=== PATIENT | male | born 1940 | race Caucasian/White ===

== ENCOUNTER 2016-12-07 05:15 | Day surgery (SDC) | payer MEDICARE, BC ==
[2016-12-07] MEDS ORDERED: Dextrose 5%-Lactated Ringers 1,000 ML IV SCH (06:15)
[2016-12-07] MEDS ORDERED: Midazolam 1 MG/ML 2 ML SDV ONE (07:13)
[2016-12-07] MEDS ORDERED: fentaNYL 100 MCG/2 ML SDV ONE (07:13)
[2016-12-07] MEDS ORDERED: Propofol 200 MG/20 ML SDV ONE ×2 (07:13→07:40)
[2016-12-07] MEDS ORDERED: Glycopyrrolate 0.2 MG/ML 2 ML SYRINGE IVPUSH ONE (07:15)
[2016-12-07] MEDS ORDERED: Pantoprazole 40 MG Vial IVPUSH ONE (08:15)
[2016-12-07 10:15] VITALS: BP 124/72
--- NOTE | 2016-12-14 07:41 | OR ---
DATE OF PROCEDURE: 12/07/2016 PREOPERATIVE DIAGNOSIS: Anemia. POSTOPERATIVE DIAGNOSES: Anemia associated with: 1. Erosive antral gastritis and duodenitis (likely bleeding source). 2. 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 3. Uncomplicated left colonic diverticulosis. OPERATIVE PROCEDURE: 1. Esophagogastroduodenoscopy with:. a. Biopsies of the esophagogastric junction for histologic evaluation. b. Biopsies of antrum for CLOtest. 2. Flexible colonoscopy. ANESTHESIA: IV sedation. INDICATION FOR PROCEDURE: A 76-year-old male presenting with some anemia. Plan is to proceed with upper GI endoscopy with biopsies as indicated along with colonoscopy with biopsies and/or polypectomy as indicated. Potential risks including bleeding and perforation were discussed, and the patient wishes to proceed. DETAILS OF PROCEDURE: Esophagogastroduodenoscopy: The patient was taken to the operating room and placed in a left lateral decubitus position. IV sedation was administered, after which the upper GI endoscope was passed orally through the length of the esophagus, into the stomach with retroflexion view of the fundus, and thereafter through the pyloric channel and into the proximal duodenum. Findings included normal hypopharynx, larynx, upper esophageal sphincter, and esophageal body. At the EG junction there was 1 to 2 cm hiatal hernia. 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 No erosions or ulcers were seen and at this point would not appear to be likely a bleeding source. Within the stomach, the proximal stomach, apart from the hiatal hernia, was unremarkable. There was, however, fairly aggressive erosive antral gastritis and duodenitis. Duodenitis ended beyond the duodenal bulb. There was no blood or bleeding seen on today's exam, but the findings certainly could be consistent with some intermittent bleeding from those areas as the erosion would over time tend to wax and wane. At this point, biopsies were obtained from the antrum and sent for CLOtest for H. pylori. Multiple biopsies were then obtained from esophagogastric junction and sent for histologic evaluation. Minimal bleeding from the biopsy sites was seen and the procedure was then concluded. Colonoscopy: Attention was then taken to the colonoscopy. Initial digital rectal exam was performed, and it was unremarkable. Colonoscope was then inserted into the rectum with retroflexion revealing uncomplicated hemorrhoidal columns. The scope was then passed to the level of the cecum. The prep was fairly good with there only being a small amount of liquid and some scattered solid stool present. The patient had some scattered uncomplicated left- sided colonic diverticula, otherwise there were no areas of colitis and no polyps or other signs of neoplasia. The scope was then withdrawn. The above findings were reconfirmed, and the procedure was then concluded. PLAN: Plan will be to start the patient on Protonix 40 mg a day. The patient has been on ibuprofen, and this may be contributing to the patient's gastritis. In the past, Tylenol has not been efficacious. I think, after starting the Protonix, he probably can go back on the ibuprofen. Other option would be to switch to something such as a JACKSON-2 inhibitor, i.e., Celebrex for the arthritis, and we will leave that decision making up to Dr. Peter and the patient over time. Otherwise, we will start Protonix 40 mg a day, and he will be instructed that he could restart the ibuprofen in around 5 days or so, and follow up will be with Dr. Peter in roughly [address] [facility]. Tai Sarah MD /[id number]
== END 2016-12-07 10:35 | disposition home or self-care (01) ==
LOC: JP.SDS 05:15
PROVIDERS: ATTEND Surgery
DX: K21.0 Gastro-esophageal reflux disease with esophagitis (principal); K57.30 Diverticulosis of large intestine without perforation or abscess without bleeding; K44.9 Diaphragmatic hernia without obstruction or gangrene; Z88.1 Allergy status to other antibiotic agents; Z88.8 Allergy status to other drugs, medicaments and biological substances; E78.00 Pure hypercholesterolemia, unspecified; E03.9 Hypothyroidism, unspecified; G62.9 Polyneuropathy, unspecified
CPT/HCPCS: 43239; 45378; 87081; C9113; J2250; J2704; J3010; J7042; 88305

== ENCOUNTER 2017-08-03 09:50 | Emergency (ER) | payer MEDICARE, BC ==
[2017-08-03 10:09] VITALS: BP 142/83
[2017-08-03] MEDS ORDERED: Diltiazem IR 30 MG Tab PO ONE (10:32)
--- NOTE | 2017-08-03 10:43 | EDM.PDOC ---
ED HPI GENERAL MEDICAL PROBLEM - General Chief Complaint: Cardiovascular Problem Stated Complaint: [facility] Time Seen by Provider: 08/03/17 10:00 Source of Information: Reports: Patient, Family History Limitations: Reports: No Limitations - History of Present Illness INITIAL COMMENTS - FREE TEXT/NARRATIVE: 76-year-old male with chronic paroxysmal atrial fibrillation tends to get an episode of atrial fibrillation "every spring and every fall". This morning after he was up for the day he developed palpitations and he knew he was in atrial fibrillation. He has no shortness of breath, chest pain, nausea or vomiting or other symptoms. He called the clinic and he was sent to the emergency room. Onset: Sudden (Within the last 3 hours) Severity: Mild Associated Symptoms: Reports: No Other Symptoms - Related Data Allergies Allergy/AdvReac Type Severity Reaction Status Date / Time triamcinolone acetonide Allergy Rash Verified 12/07/16 06:03 [From Kenalog] amoxicillin trihydrate AdvReac Diarrhea Verified 12/07/16 06:03 [From Augmentin] azithromycin [From Zithromax] AdvReac Stomach Verified 12/07/16 06:03 Ache potassium clavulanate AdvReac Diarrhea Verified 12/07/16 06:03 [From Augmentin] Home Meds: Home Meds Docusate Sodium [Colace] 2 tab PO BEDTIME 11/05/13 [History] Fluticasone Propionate [Flonase] 1 spray NASBOTH DAILY 11/05/13 [History] Furosemide [Lasix] 20 mg PO ASDIRECTED PRN 11/05/13 [History] Levothyroxine 200 mcg PO DAILY 11/05/13 [History] Multivitamin with Minerals [Multiple Vitamin] 1 tab PO DAILY 11/05/13 [History] Propafenone HCl [Rythmol] 150 mg PO BID 11/05/13 [History] atorvaSTATin Calcium [Atorvastatin Calcium] 20 mg PO BEDTIME 11/05/13 [History] Aspirin [Ecotrin] 81 mg PO DAILY 12/06/16 [History] Past Medical History HEENT History: Reports: Allergic Rhinitis, Cataract Cardiovascular History: Reports: Afib, Arrhythmia, High Cholesterol Respiratory History: Reports: Pneumothorax Other Respiratory History: 1999 Gastrointestinal History: Reports: Chronic Constipation, GERD, Hemorrhoids Musculoskeletal History: Reports: Fracture, Osteoarthritis Neurological History: Reports: Other (See Below) Other Neuro History: Lesion cervical canal (stroke) Endocrine/Metabolic History: Reports: Hypothyroidism Hematologic History: Reports: Anemia, Iron Deficiency Oncologic (Cancer) History: Reports: Basal Cell Carcinoma Dermatologic History: Reports: Other (See Below) Other Dermatologic History: basal cell - Infectious Disease History Infectious Disease History: Reports: Chicken Pox, Measles, Mumps - Past Surgical History HEENT Surgical History: Reports: Adenoidectomy, Tonsillectomy GI Surgical History: Reports: Appendectomy, Colonoscopy, EGD, Hernia Repair/ Other Endocrine Surgical History: Reports: None Musculoskeletal Surgical History: Reports: Arthroscopic Knee, Hip Replacement, Shoulder Surgery Dermatological Surgical History: Reports: Skin Biopsy Social & Family History - Tobacco Use Smoking Status *Q: Former Smoker Years of Tobacco use: 30 Used Tobacco, but Quit: No Month Tobacco Last Used: Oct Tobacco Use Comment: quit in March 2017 Second Hand Smoke Exposure: No - Caffeine Use Caffeine Use: Reports: None - Alcohol Use Days Per Week of Alcohol Use: 0 - Recreational Drug Use Recreational Drug Use: No ED ROS GENERAL - Review of Systems Review Of Systems: See Below Constitutional: Denies: Fever, Chills Respiratory: Denies: Shortness of Breath Cardiovascular: Reports: Palpitations. Denies: Chest Pain GI/Abdominal: Denies: Abdominal Pain, Nausea, Vomiting ED EXAM, GENERAL - Physical Exam Exam: See Below Exam Limited By: No Limitations General Appearance: Alert, No Apparent Distress Respiratory/Chest: No Respiratory Distress, Lungs Clear Cardiovascular: Irregularly Irregular Extremities: No: Pedal Edema Neurological: Alert, Oriented EKG INTERPRETATION Rhythm: A-Fib Rate (Beats/Min): 120 Course - Vital Signs Last Recorded V/S: Last Vital Signs Temp 97.0 F 08/03/17 09:53 Pulse 138 H 08/03/17 09:53 Resp 20 08/03/17 09:53 BP 142/83 H 08/03/17 09:53 Pulse Ox 96 08/03/17 09:53 - Orders/Labs/Meds Orders: Active Orders 24 hr Category Date Time Status EKG Documentation Completion [RC] ASDIRECTED Care 08/03/17 10:39 Active EKG 12 Lead [EK] Routine Ther 08/03/17 10:39 Ordered Meds: Medications Discontinued Medications Generic Name Dose Route Start Last Admin Trade Name Freq PRN Reason Stop Dose Admin Diltiazem HCl 30 mg 08/03/17 10:32 Cardizem PO 08/03/17 10:33 ONETIME ONE - Re-Assessments/Exams Free Text/Narrative Re-Assessment/Exam: 08/03/17 10:41 Patient was kept on cardiac monitoring and remained in atrial fibrillation for the next 20 minutes. He had eaten on his way to the hospital, so we were preparing to give him a dose of oral Cardizem and have him come back in 4 hours but he converted spontaneously. He remained asymptomatic. He was discharged with instructions to return if symptoms recur. They are calling the collet driller to inform him of what happened. Departure - Departure Time of Disposition: 11:00 Disposition: Home, Self-Care 01 Condition: Good Clinical Impression: Atrial fibrillation with rapid ventricular response Referrals: Fernando Peter MD [Primary Care Provider] - Forms: ED Department Discharge Care Plan Goals: Continue your current medications unless instructed to change doses by your collet driller. Return any time if symptoms recur or you develop other concerns. - My Orders Last 24 Hours: My Active Orders 08/03/17 10:39 EKG Documentation Completion [RC] ASDIRECTED EKG 12 Lead [EK] Routine - Assessment/Plan Last 24 Hours: My Active Orders 08/03/17 10:39 EKG Documentation Completion [RC] ASDIRECTED EKG 12 Lead [EK] Routine
== END 2017-08-03 11:00 | disposition home or self-care (01) ==
LOC: JP.ED 09:50
DX: I48.91 Unspecified atrial fibrillation (principal); Z88.8 Allergy status to other drugs, medicaments and biological substances; Z88.1 Allergy status to other antibiotic agents; Z79.82 Long term (current) use of aspirin; E03.9 Hypothyroidism, unspecified; Z87.891 Personal history of nicotine dependence
CPT/HCPCS: 93005; 93010; 99284; 99285-25

== ENCOUNTER 2018-12-11 07:58 | Day surgery (SDC) | payer MEDICARE, BC ==
[~2018-12-11 07:58] MED LIST: Midazolam 1 MG/ML 2 ML SDV ONE; Propofol 200 MG/20 ML SDV ONE; fentaNYL 100 MCG/2 ML SDV ONE
[2018-12-11] MEDS ORDERED: Dextrose 5%-Lactated Ringers 1,000 ML IV SCH (08:45)
[2018-12-11] MEDS ORDERED: Ampicillin/Sulbactam Na 3 GM in Sodium Chloride 0.9% 100 ML IV ONE (08:45)
[2018-12-11] MEDS ORDERED: fentaNYL 100 MCG/2 ML SDV ONE (09:07)
[2018-12-11] MEDS ORDERED: Propofol 200 MG/20 ML SDV ONE (09:07)
[2018-12-11 12:32] VITALS: BP 140/83
--- NOTE | 2018-12-12 10:40 | OR ---
DATE OF PROCEDURE: 12/11/2018 PREOPERATIVE DIAGNOSIS: History of Quintanilla esophagus. POSTOPERATIVE DIAGNOSES: 1. History of Quintanilla esophagus. 2. Mild antral gastritis and duodenitis. OPERATIVE PROCEDURES: Esophagogastroduodenoscopy with, 1. Biopsies of esophagogastric junction for histologic evaluation. 2. Biopsies of antrum for CLOtest. ANESTHESIA: IV sedation. INDICATION FOR PROCEDURE: This is a 78-year-old presenting with history of Quintanilla esophagus, for followup endoscopy. Potential risks including bleeding and perforation were discussed, and the patient wishes to proceed. DETAILS OF PROCEDURE: The patient was taken to the operating room and placed in a left lateral decubitus position. IV sedation was administered, after which the upper GI endoscope was passed orally through the length of the esophagus and into the stomach with retroflexion view of the fundus, thereafter through the pyloric channel and into the proximal duodenum. Findings included a moderate-sized hiatal hernia measuring around 2 to 3 cm. He did have some Quintanilla esophagus present in terms of upper extension of gastroesophageal junction mucosal line above the upper gastric folds. This was associated with minimal if any gross inflammation. There was no area of stricturing or plaquing suggestive of neoplastic change. Within the stomach, there was some mild redness in the antrum and some patchy redness in the duodenal bulb, but without erosions or ulcers. At this point, biopsies were obtained from the antrum and sent for CLOtest for H. pylori. Multiple biopsies were then sent for the esophagogastric junction. Minimal bleeding from the biopsy site was seen and procedure was then concluded. The patient presently is not any stomach medication. Moderate inflammation at the antrum and duodenum are such that I do not think we can start any at this time. We will contact the patient regarding the biopsies. Assuming that there is not any trend toward dysplasia within the Quintanilla esophagus, would repeat the endoscopy in 2 years. Tai Sarah MD /[id number]
== END 2018-12-11 13:02 | disposition home or self-care (01) ==
LOC: JP.SDS 07:58
PROVIDERS: ATTEND Surgery
DX: K22.70 Barrett's esophagus without dysplasia (principal); K29.80 Duodenitis without bleeding; K29.70 Gastritis, unspecified, without bleeding; E03.9 Hypothyroidism, unspecified; I48.91 Unspecified atrial fibrillation; Z86.73 Personal history of transient ischemic attack (TIA), and cerebral infarction without residual deficits
CPT/HCPCS: 43239; 87081; J0295; J2704; J3010; J7030; J7042; J2250

== ENCOUNTER 2020-06-12 09:06 | Inpatient (IN) | payer MEDICARE, BC, OTHER ==
[2020-06-12] MEDS ORDERED: Sodium Chloride 0.9% 10 ML Syringe FLUSH PRN (09:28)
--- NOTE | 2020-06-12 09:28 | EDM.PDOC ---
ED HPI GENERAL MEDICAL PROBLEM - General Chief Complaint: Gastrointestinal Problem Stated Complaint: POSSIBLE GI BLEED Time Seen by Provider: 06/12/20 09:28 Source of Information: Reports: Patient History Limitations: Reports: No Limitations - History of Present Illness INITIAL COMMENTS - FREE TEXT/NARRATIVE: 79 years old male patient presented to the ER with a chief complaint of abdominal pain started a couple days ago. Cramping. No radiation. Denies any nausea or vomiting. Nothing makes it better or worse. Has been having black stool for the last couple days. No bright red blood. Denies any diarrhea or constipation. Denies any urinary symptom. Denies any cough or fever. Has been feeling short of breath for the last few days. Exertional. Denies any chest pain. He had a low blood pressure, 80 systolic in the last few days. 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 He went to the clinic this morning and was sent to the ER for concern about GI bleed. Abdomen Pain Score (Numeric/FACES): 4 - Related Data Allergies Allergy/AdvReac Type Severity Reaction Status Date / Time ibuprofen Allergy Other Verified 06/12/20 09:21 triamcinolone acetonide Allergy Rash Verified 06/12/20 09:21 [From Kenalog] amoxicillin trihydrate AdvReac Diarrhea Verified 06/12/20 09:21 [From Augmentin] azithromycin [From Zithromax] AdvReac Stomach Verified 06/12/20 09:21 Ache potassium clavulanate AdvReac Diarrhea Verified 06/12/20 09:21 [From Augmentin] Home Meds: Home Meds Docusate Sodium [Colace] 2 tab PO BEDTIME 11/05/13 [History] Fluticasone Propionate [Flonase] 1 spray NASBOTH DAILY 11/05/13 [History] Furosemide [Lasix] 40 mg PO DAILY 11/05/13 [History] Levothyroxine 150 mcg PO DAILY 11/05/13 [History] Multivitamin with Minerals [Multiple Vitamin] 1 tab PO DAILY 11/05/13 [History] Apixaban [Eliquis] 5 mg PO BID 12/08/18 [History] [place]-3/DHA/Epa/Fish Oil [[place]-3 Fish Oil 1,000 MG Sfgl] 2,000 mg PO DAILY 12/08/18 [History] Metoprolol Succinate 25 mg PO DAILY 06/12/20 [History] Ubidecarenone [Coq-10] 100 mg PO DAILY 06/12/20 [History] Past Medical History HEENT History: Reports: Allergic Rhinitis, Cataract Cardiovascular History: Reports: Afib, Arrhythmia, High Cholesterol Respiratory History: Reports: Pneumothorax Other Respiratory History: 1999 Gastrointestinal History: Reports: Chronic Constipation, GERD, Hemorrhoids Musculoskeletal History: Reports: Fracture, Osteoarthritis Neurological History: Reports: Other (See Below) Other Neuro History: Lesion cervical canal (stroke) Endocrine/Metabolic History: Reports: Hypothyroidism Hematologic History: Reports: Anemia, Iron Deficiency Oncologic (Cancer) History: Reports: Basal Cell Carcinoma Dermatologic History: Reports: Other (See Below) Other Dermatologic History: basal cell - Infectious Disease History Infectious Disease History: Reports: Chicken Pox, Measles, Mumps - Past Surgical History HEENT Surgical History: Reports: Adenoidectomy, Tonsillectomy GI Surgical History: Reports: Appendectomy, Colonoscopy, EGD, Hernia Repair/Other Endocrine Surgical History: Reports: None Musculoskeletal Surgical History: Reports: Arthroscopic Knee, Hip Replacement, Shoulder Surgery Dermatological Surgical History: Reports: Skin Biopsy Social & Family History - Family History Family Medical History: Noncontributory - Caffeine Use Caffeine Use: Reports: None ED ROS GENERAL - Review of Systems Review Of Systems: Comprehensive ROS is negative, except as noted in HPI. ED EXAM, GI/ABD - Physical Exam Exam: See Below General Appearance: Alert, WD/WN, No Apparent Distress Nose: Normal Inspection, Normal Mucosa, No Blood Head: Atraumatic, Normocephalic Neck: Normal Inspection, Supple, Non-Tender, Full Range of Motion Respiratory/Chest: No Respiratory Distress, Lungs Clear, Normal Breath Sounds, No Accessory Muscle Use, Chest Non-Tender Cardiovascular: Normal Peripheral Pulses, No Edema, No Gallop, No JVD, No Murmur, No Rub, Irregularly Irregular GI/Abdominal Exam: Normal Bowel Sounds, Soft, Non-Tender, No Organomegaly, No Distention, No Mass Extremities: Normal Inspection, Normal Range of Motion, Non-Tender, Normal Capillary Refill, No Pedal Edema Neurological: Alert, Oriented, CN II-XII Intact, Normal Cognition, Normal Gait, Normal Reflexes, No Motor/Sensory Deficits Skin Exam: Warm, Dry, Intact, Normal Color, No Rash Course - Vital Signs Last Recorded V/S: Last Vital Signs Temp 36.2 C 06/12/20 09:15 Pulse 40 L 06/12/20 10:41 Resp 16 06/12/20 09:15 BP 115/52 L 06/12/20 10:41 Pulse Ox 99 06/12/20 10:41 - Orders/Labs/Meds Orders: Active Orders 24 hr Category Date Time Status Peripheral IV Care [RC] . DIRECTED Care 06/12/20 09:29 Active PATIENT RETYPE [BBK] Urgent Lab 06/12/20 09:46 Results TYPE AND SCREEN [BBK] Urgent Lab 06/12/20 09:46 Results Pantoprazole [ProTONIX IV] Med 06/12/20 11:58 Once 40 mg IVPUSH ONETIME ONE Sodium Chloride 0.9% [Normal Saline] 1,000 ml Med 06/12/20 09:30 Active IV ASDIRECTED Sodium Chloride 0.9% [Normal Saline] 100 ml Med 06/12/20 10:30 Active IV ASDIRECTED Sodium Chloride 0.9% [Saline Flush] Med 06/12/20 09:28 Active 10 ml FLUSH ASDIRECTED PRN Peripheral IV Insertion Adult [OM.PC] Urgent Oth 06/12/20 09:28 Ordered Medication Orders Sodium Chloride (Normal Saline) 1,000 mls @ 125 mls/hr IV ASDIRECTED [facility] Last Admin: 06/12/20 10:00 Dose: 125 mls/hr Documented by: PREILOR Sodium Chloride (Normal Saline) 100 mls @ 3 mls/sec IV ASDIRECTED [facility] Last Admin: 06/12/20 11:35 Dose: 3 mls/sec Documented by: MELIA Pantoprazole Sodium (Protonix Iv) 40 mg IVPUSH ONETIME ONE Stop: 06/12/20 11:59 Sodium Chloride (Saline Flush) 10 ml FLUSH ASDIRECTED PRN PRN Reason: Keep Vein Open Last Admin: 06/12/20 09:59 Dose: 10 ml Documented by: PREILOR Labs: Laboratory Tests 06/12/20 06/12/20 06/12/20 Range/Units 09:46 09:46 09:46 WBC 8.7 (4.5-11.0) K/uL RBC 3.61 L (4.30-5.90) M/uL Hgb 11.4 L (12.0-15.0) g/dL Hct 36.7 L (40.0-54.0) % MCV 102 H (80-98) fL MCH 32 H (27-31) pg MCHC 31 L (32-36) % Plt Count 247 (150-400) K/uL Neut % (Auto) 80 H (36-66) % Lymph % (Auto) 10 L (24-44) % Stark % (Auto) 9 H (2-6) % Eos % (Auto) 0 L (2-4) % Baso % (Auto) 1 (0-1) % PT 11.8 (9.5-12.0) sec INR 1.08 (0.80-1.20) APTT 24.1 L (27.0-36.0) sec Sodium 140 (140-148) mmol/L Potassium 3.8 (3.6-5.2) mmol/L Chloride 104 (100-108) mmol/L Carbon Dioxide 28 (21-32) mmol/L Anion Gap 7.8 (5.0-14.0) mmol/L BUN 65 H (7-18) mg/dL Creatinine 0.7 L (0.8-1.3) mg/dL Est Cr Clr Drug Dosing 94.13 mL/min Estimated GFR (MDRD) > 60 (>60) Glucose 133 H (74-106) mg/dL Calcium 8.3 L (8.5-10.1) mg/dL Total Bilirubin 0.2 (0.2-1.0) mg/dL AST 30 (15-37) U/L ALT 20 (12-78) U/L Alkaline Phosphatase 80 (46-116) U/L Total Protein 5.7 L (6.4-8.2) g/dL Albumin 3.0 L (3.4-5.0) g/dL Globulin 2.7 (2.3-3.5) g/dL Albumin/Globulin Ratio 1.1 L (1.2-2.2) Blood Type Gel Antibody Screen 06/12/20 Range/Units 09:46 WBC (4.5-11.0) K/uL RBC (4.30-5.90) M/uL Hgb (12.0-15.0) g/dL Hct (40.0-54.0) % MCV (80-98) fL MCH (27-31) pg MCHC (32-36) % Plt Count (150-400) K/uL Neut % (Auto) (36-66) % Lymph % (Auto) (24-44) % Stark % (Auto) (2-6) % Eos % (Auto) (2-4) % Baso % (Auto) (0-1) % PT (9.5-12.0) sec INR (0.80-1.20) APTT (27.0-36.0) sec Sodium (140-148) mmol/L Potassium (3.6-5.2) mmol/L Chloride (100-108) mmol/L Carbon Dioxide (21-32) mmol/L Anion Gap (5.0-14.0) mmol/L BUN (7-18) mg/dL Creatinine (0.8-1.3) mg/dL Est Cr Clr Drug Dosing mL/min Estimated GFR (MDRD) (>60) Glucose (74-106) mg/dL Calcium (8.5-10.1) mg/dL Total Bilirubin (0.2-1.0) mg/dL AST (15-37) U/L ALT (12-78) U/L Alkaline Phosphatase (46-116) U/L Total Protein (6.4-8.2) g/dL Albumin (3.4-5.0) g/dL Globulin (2.3-3.5) g/dL Albumin/Globulin Ratio (1.2-2.2) Blood Type A POSITIVE Gel Antibody Screen Negative Meds: Medications Generic Name Dose Route Start Last Admin Trade Name Christopher PRN Reason Stop Dose Admin Sodium Chloride 1,000 mls @ 125 mls/hr 06/12/20 09:30 06/12/20 10:00 Normal Saline IV 125 mls/hr ASDIRECTED DOLORES Administration Sodium Chloride 100 mls @ 3 mls/sec 06/12/20 10:30 06/12/20 11:35 Normal Saline IV 3 mls/sec ASDIRECTED DOLORES Administration Pantoprazole Sodium 40 mg 06/12/20 11:58 Protonix Iv IVPUSH 06/12/20 11:59 ONETIME ONE Sodium Chloride 10 ml 06/12/20 09:28 06/12/20 09:59 Saline Flush FLUSH 10 ml ASDIRECTED PRN Administration Keep Vein Open Discontinued Medications Generic Name Dose Route Start Last Admin Trade Name Freq PRN Reason Stop Dose Admin Metronidazole 500 mg/ Premix 100 mls @ 100 mls/hr 06/12/20 11:46 06/12/20 11:51 IV 06/12/20 12:45 Not Given ONETIME ONE Iopamidol 124 ml 06/12/20 10:19 06/12/20 11:35 Isovue-300 (61%) IV 06/12/20 10:20 124 ml ONETIME ONE Administration Sodium Chloride 10 ml 06/12/20 10:19 06/12/20 11:35 Saline Flush FLUSH 06/12/20 10:20 10 ml ONETIME ONE Administration - Radiology Interpretation Free Text/Narrative:: Patient was seen and examined shortly after arrival. Stable. Lab and imaging reviewed with the patient. Given 40 mg IV Protonix. Concern about upper GI bleed. Case was discussed with Dr. Garcia hospitalist stone rougher and he accepted admission for further management. Patient agrees with the plan. Stable for admission. Departure - Departure Time of Disposition: 11:57 Disposition: Admitted As Inpatient 66 Condition: Fair Clinical Impression: GI bleed - Discharge Information Referrals: Loi Devi MD [Primary Care Provider] - Forms: ED Department Discharge Sepsis Event Note (ED) - Evaluation Sepsis Screening Result: No Definite Risk - Focused Exam Vital Signs: Vital Signs Temp Pulse Resp BP Pulse Ox 06/12/20 10:41 40 L 115/52 L 99 06/12/20 09:15 36.2 C 44 L 16 129/60 98 06/12/20 09:13 46 L 129/60 97 - My Orders Last 24 Hours: My Active Orders 06/12/20 09:28 Sodium Chloride 0.9% [Saline Flush] 10 ml FLUSH ASDIRECTED PRN Peripheral IV Insertion Adult [OM.PC] Urgent 06/12/20 09:29 Peripheral IV Care [RC] . DIRECTED 06/12/20 09:30 Sodium Chloride 0.9% [Normal Saline] 1,000 ml IV ASDIRECTED 06/12/20 09:46 PATIENT RETYPE [BBK] Urgent TYPE AND SCREEN [BBK] Urgent 06/12/20 10:30 Sodium Chloride 0.9% [Normal Saline] 100 ml IV ASDIRECTED 06/12/20 11:58 Pantoprazole [ProTONIX IV] 40 mg IVPUSH ONETIME ONE - Assessment/Plan Last 24 Hours: My Active Orders 06/12/20 09:28 Sodium Chloride 0.9% [Saline Flush] 10 ml FLUSH ASDIRECTED PRN Peripheral IV Insertion Adult [OM.PC] Urgent 06/12/20 09:29 Peripheral IV Care [RC] . DIRECTED 06/12/20 09:30 Sodium Chloride 0.9% [Normal Saline] 1,000 ml IV ASDIRECTED 06/12/20 09:46 PATIENT RETYPE [BBK] Urgent TYPE AND SCREEN [BBK] Urgent 06/12/20 10:30 Sodium Chloride 0.9% [Normal Saline] 100 ml IV ASDIRECTED 06/12/20 11:58 Pantoprazole [ProTONIX IV] 40 mg IVPUSH ONETIME ONE
[2020-06-12] MEDS ORDERED: Sodium Chloride 0.9% 1,000 ML IV SCH (09:30)
[2020-06-12] MEDS ORDERED: Sodium Chloride 0.9% 10 ML Syringe FLUSH ONE (10:19)
[2020-06-12] MEDS ORDERED: Iopamidol 612 MG/ML 500 ML Multipack Bottle IV ONE (10:19)
[2020-06-12] MEDS ORDERED: Sodium Chloride 0.9% 100 ML IV SCH (10:30)
--- NOTE | 2020-06-12 11:06 | CR ---
CHEST: 2 view CLINICAL HISTORY:SOB COMPARISON:2009 FINDINGS: The heart size, pulmonary vascularity and hilar structures are normal. No infiltrate effusion or pneumothorax is seen. There are atherosclerotic changes in the aorta. Lungs are mildly hyperaerated IMPRESSION: No acute cardiopulmonary process. Mild hyperaeration
--- NOTE | 2020-06-12 11:17 | CT ---
Abdomen Pelvis w Cont CLINICAL HISTORY: Black stool COMPARISON: None. TECHNIQUE: Transverse scans were obtained from the base of the lungs to the pubic symphysis following oral contrast and IV infusion of contrast.Auto dosage reduction and iterative reconstructiontechniques employed. FINDINGS: The lung bases are clear. There is a small hiatal hernia. The liver shows some diffuse fatty infiltration. There is no mass or biliary dilatation. It is borderline enlarged The gallbladder contains a 4 mm nodular focus in the mid gallbladder in the dependent portion. This may represent a small stone or possibly a polyp.. The spleen has a normal size and shape. The pancreas shows no mass or inflammatory change. The adrenal glands are enlarged bilaterally. Density measurements are nonspecific and postcontrast study. . The left kidney contains a 1.3 cm cyst off the upper pole. There is no stones or hydronephrosis. Ureters have normal course and caliber. Cyst.. The bladder is obscured by streak artifact from hip prostheses.. The aorta shows atheromatous plaque without aneurysm. There is no suspicious retroperitoneal adenopathy. Small intestinal configuration is nonacute. There is some sigmoid diverticulosis without evidence diverticulitis. Appendix is not visualized. Low pelvic fascial planes are partially obscured by motion artifact and streak artifact from hip prostheses IMPRESSION: 4 mm nodular filling defect in the dependent portion of gallbladder is likely a small stone. Polyp cannot be excluded. This should be correlated with ultrasound Fatty infiltration of the liver Small left renal cyst Bilateral adrenal enlargement versus bilateral adrenal nodules. Density measurements are nonspecific
[2020-06-12] MEDS ORDERED: Ciprofloxacin in D5W 400 MG in Premix Bag 1 BAG IV ONE ×2 (11:46)
[2020-06-12] MEDS ORDERED: metroNIDAZOLE/Normal Saline 500 MG in Premix Bag 1 BAG IV ONE (11:46)
[2020-06-12] MEDS ORDERED: Pantoprazole 40 MG Vial IVPUSH ONE (11:58)
--- NOTE | 2020-06-12 12:59 | PCM.HP.2 ---
H&P History of Present Illness - General Date of Service: 06/12/20 Admit Problem/Dx: Admission Diagnosis/Problem Admission Diagnosis/Problem Gastrointestinal hemorrhage with melena Source of Information: Patient, Family, Provider History Limitations: Reports: No Limitations - History of Present Illness Initial Comments - Free Text/Narative: CC: My stool was black HPI: Al presents to the emergency room today with melena and episodes of presyncope. Symptoms started several days ago and initially it was mostly fatigue. He had some weakness. His blood pressure and heart rate were noted to be low at home. His metoprolol was stopped but symptoms continued. Last night he developed melena and felt like he was going to pass out when getting back to the bathroom. This happened 2 more times last night. He went to the clinic this morning for evaluation and they sent him right to the emergency room. He has had fairly large volume black and tarry stools on several occasions. No natasha blood and no hematemesis. He has had an increase in acid reflux but no reported abdominal pain. He is not aware of any fevers. He has not had recent difficulties with diarrhea or constipation. He does feel a little bit more short of breath than usual but has not had any orthopnea or lower extremity swelling. Appetite has been off the last few days but had been good prior to that. No travel or sick contacts. No new home medications. No change in his diet. Work-up in the emergency room revealed a hemoglobin of 11 with a baseline of about 15. He was borderline hypotensive but has been improving with IV fluids. Remainder of his laboratory studies are fairly unremarkable. He has received a dose of IV pantoprazole and will be admitted for further management of a pr esumed upper gastrointestinal hemorrhage. Abdomen Pain Score (Numeric/FACES): 4 - Related Data Allergies/Adverse Reactions: Allergies Allergy/AdvReac Type Severity Reaction Status Date / Time ibuprofen Allergy Other Verified 06/12/20 09:21 triamcinolone acetonide Allergy Rash Verified 06/12/20 09:21 [From Kenalog] amoxicillin trihydrate AdvReac Diarrhea Verified 06/12/20 09:21 [From Augmentin] azithromycin [From Zithromax] AdvReac Stomach Verified 06/12/20 09:21 Ache potassium clavulanate AdvReac Diarrhea Verified 06/12/20 09:21 [From Augmentin] Home Medications: Home Meds Docusate Sodium [Colace] 2 tab PO BEDTIME 11/05/13 [History] Fluticasone Propionate [Flonase] 1 spray NASBOTH DAILY 11/05/13 [History] Furosemide [Lasix] 40 mg PO DAILY 11/05/13 [History] Levothyroxine 150 mcg PO DAILY 11/05/13 [History] Multivitamin with Minerals [Multiple Vitamin] 1 tab PO DAILY 11/05/13 [History] Apixaban [Eliquis] 5 mg PO BID 12/08/18 [History] [place]-3/DHA/Epa/Fish Oil [[place]-3 Fish Oil 1,000 MG Sfgl] 2,000 mg PO DAILY 12/08/18 [History] Metoprolol Succinate 25 mg PO DAILY 06/12/20 [History] Ubidecarenone [Coq-10] 100 mg PO DAILY 06/12/20 [History] Past Medical History HEENT History: Reports: Allergic Rhinitis, Cataract Cardiovascular History: Reports: Afib, Arrhythmia, High Cholesterol Respiratory History: Reports: Pneumothorax Other Respiratory History: 1999 Gastrointestinal History: Reports: Chronic Constipation, GERD, Hemorrhoids Other Gastrointestinal History: Barretts esophagus Musculoskeletal History: Reports: Fracture, Osteoarthritis Neurological History: Reports: Other (See Below) Other Neuro History: Lesion cervical canal (stroke) Endocrine/Metabolic History: Reports: Hypothyroidism Hematologic History: Reports: Anemia, Iron Deficiency Oncologic (Cancer) History: Reports: Basal Cell Carcinoma Dermatologic History: Reports: Other (See Below) Other Dermatologic History: basal cell - Infectious Disease History Infectious Disease History: Reports: Chicken Pox, Measles, Mumps - Past Surgical History HEENT Surgical History: Reports: Adenoidectomy, Tonsillectomy GI Surgical History: Reports: Appendectomy, Colonoscopy, EGD, Hernia Repair/Other Endocrine Surgical History: Reports: None Musculoskeletal Surgical History: Reports: Arthroscopic Knee, Hip Replacement, Shoulder Surgery Dermatological Surgical History: Reports: Skin Biopsy Social & Family History - Family History Family Medical History: Noncontributory - Tobacco Use Smoking Status *Q: Former Smoker Used Tobacco, but Quit: Yes Month/Year Tobacco Last Used: 2016 - Caffeine Use Caffeine Use: Reports: None - Alcohol Use Alcohol Use History: No - Recreational Drug Use Recreational Drug Use: No H&P Review of Systems - Review of Systems: Review Of Systems: See Below Free Text/Narrative: A complete 12 point review of systems was obtained. Pertinent positives and negatives are noted in the history of present illness. All other systems were reviewed and were negative except as noted. Exam - Exam Exam: See Below - Vital Signs Vital Signs: Last Vital Signs Temp 36.2 C 06/12/20 09:15 Pulse 43 L 06/12/20 12:12 Resp 16 06/12/20 09:15 BP 102/53 L 06/12/20 12:12 Pulse Ox 99 06/12/20 12:12 Weight: 83.007 kg - Exam Quality Assessment: No: Supplemental Oxygen General: Alert, Oriented, Cooperative. No: Mild Distress HEENT: Conjunctiva Clear, Mucosa Moist & [place]. No: Scleral Icterus Neck: Supple, Trachea Midline. No: Lymphadenopathy Lungs: Clear to Auscultation, Normal Respiratory Effort Cardiovascular: Irregular Rhythm, Bradycardia. No: Systolic Murmur GI/Abdominal Exam: Normal Bowel Sounds, Soft, No Distention, Tender (mild epigastric ) Back Exam: Normal Inspection, Full Range of Motion Extremities: No Pedal Edema. No: Increased Warmth Peripheral Pulses: 1+: Dorsalis Pedis (L), Dorsalis Pedis (R) Skin: Warm, Dry Neuro Extensive - Mental Status: Alert, Oriented x3, Nl Response to Commands Neuro Extensive - Motor, Sensory, Reflexes: No: Dysarthria, Abnormal Motor, Tremor Psychiatric: Alert, Normal Affect - Patient Data Lab Results Last 24 hrs: Laboratory Results - last 24 hr 06/12/20 06/12/20 06/12/20 Range/Units 09:46 09:46 09:46 WBC 8.7 (4.5-11.0) K/uL RBC 3.61 L (4.30-5.90) M/uL Hgb 11.4 L (12.0-15.0) g/dL Hct 36.7 L (40.0-54.0) % MCV 102 H (80-98) fL MCH 32 H (27-31) pg MCHC 31 L (32-36) % Plt Count 247 (150-400) K/uL Neut % (Auto) 80 H (36-66) % Lymph % (Auto) 10 L (24-44) % Carroll % (Auto) 9 H (2-6) % Eos % (Auto) 0 L (2-4) % Baso % (Auto) 1 (0-1) % PT 11.8 (9.5-12.0) sec INR 1.08 (0.80-1.20) APTT 24.1 L (27.0-36.0) sec Sodium 140 (140-148) mmol/L Potassium 3.8 (3.6-5.2) mmol/L Chloride 104 (100-108) mmol/L Carbon Dioxide 28 (21-32) mmol/L Anion Gap 7.8 (5.0-14.0) mmol/L BUN 65 H (7-18) mg/dL Creatinine 0.7 L (0.8-1.3) mg/dL Est Cr Clr Drug Dosing 94.13 mL/min Estimated GFR (MDRD) > 60 (>60) Glucose 133 H (74-106) mg/dL Calcium 8.3 L (8.5-10.1) mg/dL Total Bilirubin 0.2 (0.2-1.0) mg/dL AST 30 (15-37) U/L ALT 20 (12-78) U/L Alkaline Phosphatase 80 (46-116) U/L Total Protein 5.7 L (6.4-8.2) g/dL Albumin 3.0 L (3.4-5.0) g/dL Globulin 2.7 (2.3-3.5) g/dL Albumin/Globulin Ratio 1.1 L (1.2-2.2) Blood Type Gel Antibody Screen 06/12/20 Range/Units 09:46 WBC (4.5-11.0) K/uL RBC (4.30-5.90) M/uL Hgb (12.0-15.0) g/dL Hct (40.0-54.0) % MCV (80-98) fL MCH (27-31) pg MCHC (32-36) % Plt Count (150-400) K/uL Neut % (Auto) (36-66) % Lymph % (Auto) (24-44) % Carroll % (Auto) (2-6) % Eos % (Auto) (2-4) % Baso % (Auto) (0-1) % PT (9.5-12.0) sec INR (0.80-1.20) APTT (27.0-36.0) sec Sodium (140-148) mmol/L Potassium (3.6-5.2) mmol/L Chloride (100-108) mmol/L Carbon Dioxide (21-32) mmol/L Anion Gap (5.0-14.0) mmol/L BUN (7-18) mg/dL Creatinine (0.8-1.3) mg/dL Est Cr Clr Drug Dosing mL/min Estimated GFR (MDRD) (>60) Glucose (74-106) mg/dL Calcium (8.5-10.1) mg/dL Total Bilirubin (0.2-1.0) mg/dL AST (15-37) U/L ALT (12-78) U/L Alkaline Phosphatase (46-116) U/L Total Protein (6.4-8.2) g/dL Albumin (3.4-5.0) g/dL Globulin (2.3-3.5) g/dL Albumin/Globulin Ratio (1.2-2.2) Blood Type A POSITIVE Gel Antibody Screen Negative Result Diagrams: 06/12/20 09:46 06/12/20 09:46 Imaging Impressions Last 24 hrs: CXR-image personally reviewed-lungs are clear with no mass, infiltrate or effusion CT abd/pelvis-images personally reviewed-there is a gallstone but no wall thickening of the GB. No other acute findings. Sepsis Event Note - Evaluation Sepsis Screening Result: No Definite Risk - Focused Exam Vital Signs: Vital Signs Temp Pulse Resp BP Pulse Ox 06/12/20 12:12 43 L 102/53 L 99 06/12/20 11:12 44 L 109/55 L 97 06/12/20 10:41 40 L 115/52 L 99 06/12/20 09:15 36.2 C 44 L 16 129/60 98 06/12/20 09:13 46 L 129/60 97 *Q Meaningful Use (ADM) - VTE *Q VTE Pharmacological Contraindications *Q: Active Hemorrhage - VTE Risk Assess *Q Each Risk Factor Represents 1 Point: Abnormal Pulmonary Function (COPD) Total Score 1 Point Risk Factors: 1 Each Risk Factor Represents 2 Points: Malignancy (present or previous) Total Score 2 Point Risk Factors: 2 Each Risk Factor Represents 3 Points: Age 75 Years or Greater Total Score 3 Point Risk Factors: 3 Each Risk Factor Represents 5 Points: None Total Score 5 Point Risk Factors: 0 Venous Thromboembolism Risk Factor Score *Q: 6 - Problem List (1) Acute gastrointestinal hemorrhage SNOMED Code(s): 27205197 ICD Code: K92.2 - GASTROINTESTINAL HEMORRHAGE, UNSPECIFIED Status: Acute Current Visit: Yes (2) Anemia due to blood loss, acute SNOMED Code(s): 268767746 ICD Code: D62 - ACUTE POSTHEMORRHAGIC ANEMIA Status: Acute Current Visit: Yes (3) Chronic atrial fibrillation SNOMED Code(s): 807043786 ICD Code: I48.20 - CHRONIC ATRIAL FIBRILLATION, UNSPECIFIED Status: Chronic Current Visit: Yes (4) Hypothyroidism (acquired) SNOMED Code(s): 574715935 ICD Code: E03.9 - HYPOTHYROIDISM, UNSPECIFIED Status: Chronic Current Visit: Yes Problem List Initiated/Reviewed/Updated: Yes Orders Last 24hrs: Active Orders 24 hr Category Date Time Status Patient Status Manage Transfer [TRANSFER] Routine ADT 06/12/20 12:46 Ordered Peripheral IV Care [RC] . DIRECTED Care 06/12/20 09:29 Active PATIENT RETYPE [BBK] Urgent Lab 06/12/20 09:46 Results TYPE AND SCREEN [BBK] Urgent Lab 06/12/20 09:46 Results Sodium Chloride 0.9% [Normal Saline] 1,000 ml Med 06/12/20 09:30 Active IV ASDIRECTED Sodium Chloride 0.9% [Saline Flush] Med 06/12/20 09:28 Active 10 ml FLUSH ASDIRECTED PRN Peripheral IV Insertion Adult [OM.PC] Urgent Oth 06/12/20 09:28 Ordered Resuscitation Status Routine Resus Stat 06/12/20 12:48 Ordered Medication Orders Sodium Chloride (Normal Saline) 1,000 mls @ 125 mls/hr IV ASDIRECTED DOLORES Last Admin: 06/12/20 10:00 Dose: 125 mls/hr Documented by: PREILOR Sodium Chloride (Saline Flush) 10 ml FLUSH ASDIRECTED PRN PRN Reason: Keep Vein Open Last Admin: 06/12/20 09:59 Dose: 10 ml Documented by: PREILOR Assessment/Plan Comment:: ASSESSMENT AND PLAN - Acute upper gastrointestinal hemorrhage-hemoglobin has dropped about 4 points from baseline. Upper GI source suspected based on melena and increased acid reflux symptoms. Bleeding ulcer or gastritis is suspected. No recent NSAID use. He is chronically anticoagulated with warfarin. Current symptoms include presyncope. -Admit to the intensive care unit -Continuous infusion of pantoprazole -IV fluids -Repeat hemoglobin this evening -Hold systemic anticoagulation -Clear liquids today and then nothing by mouth after midnight -EGD with Dr. Sarah in the morning Anemia due to blood loss-hemoglobin has dropped by 4 points from baseline. No indication for transfusion yet. -Type and cross 2 units of blood -Repeat hemoglobin this evening and in the morning Chronic but paroxysmal atrial fibrillation-he has had an ablation procedure. Currently sinus bradycardia. -Hold anticoagulation -Hold beta-lay Acquired hypothyroidism-stable. Maintenance issues - - DVT prophylaxis -mechanical - GI prophylaxis -PPI - Nutrition -clear liquids this afternoon and nothing by mouth after midnight - Toussaint catheter -not indicated CODE STATUS -full code Admission justification -this patient will be admitted for inpatient services and is medically appropriate meeting medical necessity for inpatient admission as outlined in my documentation. I reasonably expect the patient will require inpatient services that span a period time over 2 midnights. I reasonably expect this patient to be discharged or transferred within 96 hours after admission to the [facility]. Disposition -I would anticipate discharge home after the hospital stay Primary care physician -Dr. Jennifer Garcia M.D. - Mortality Measure Prognosis:: Good
[2020-06-12] MEDS ORDERED: Ondansetron 4 MG/2 ML SDV IV PRN (13:31)
[2020-06-12] MEDS ORDERED: Ondansetron 4 MG Tab.DIS PO PRN (13:31)
[2020-06-12] MEDS ORDERED: LORazepam 2 MG/ML SDV IVPUSH PRN (13:31)
[2020-06-12] MEDS ORDERED: Melatonin 3 MG Tab PO PRN (13:31)
[2020-06-12] MEDS: Sodium Chloride 0.9% 100 ML with Pantoprazole 80 MG IV SCH ×4 (14:26→23:51)
[2020-06-12] MEDS: Sodium Chloride 0.9% 1,000 ML IV SCH ×2 (17:45→23:51)
[2020-06-12] MEDS: Acetaminophen 325 MG Tab PO PRN (19:41)
[2020-06-13] MEDS: Levothyroxine 50 MCG Tab PO SCH (06:58)
[2020-06-13] MEDS: Acetaminophen 325 MG Tab PO PRN ×2 (06:59→21:21)
[2020-06-13] MEDS ORDERED: fentaNYL 100 MCG/2 ML SDV ONE (07:54)
[2020-06-13] MEDS ORDERED: Propofol 200 MG/20 ML SDV ONE (07:54)
[2020-06-13] MEDS: Sodium Chloride 0.9% 100 ML with Pantoprazole 80 MG IV SCH ×4 (08:44→15:25)
[2020-06-13] MEDS ORDERED: Furosemide 40 MG Tab PO SCH (09:00)
--- NOTE | 2020-06-13 10:21 | PCM.PN ---
- General Info Date of Service: 06/13/20 Subjective Update: No acute events overnight. Hemoglobin has slowly trended down but no indication for transfusion yet. No melena overnight. Blood pressures on the low side of normal. Patient feels well. No nausea or abdominal pain. EGD this morning did show a healing gastric ulcer. Functional Status: Reports: Pain Controlled - Review of Systems General: Denies: Fever Gastrointestinal: Denies: Abdominal Pain, Melena - Patient Data Vitals - Most Recent: Last Vital Signs Temp 35.6 C L 06/13/20 10:10 Pulse 84 06/13/20 10:10 Resp 16 06/13/20 10:10 BP 132/54 L 06/13/20 10:10 Pulse Ox 98 06/13/20 10:10 Weight - Most Recent: 83.007 kg I&O - Last 24 Hours: Intake & Output 06/12/20 06/13/20 06/13/20 22:59 06:59 14:59 Intake Total 566 072 8224 Output Total 200 350 100 Balance 390 320 900 Lab Results Last 24 Hours: Laboratory Results - last 24 hr 06/12/20 06/12/20 06/12/20 Range/Units 09:46 09:46 16:07 WBC (4.5-11.0) K/uL RBC (4.30-5.90) M/uL Hgb (12.0-15.0) g/dL Hct (40.0-54.0) % MCV (80-98) fL MCH (27-31) pg MCHC (32-36) % Plt Count (150-400) K/uL Sodium 140 (140-148) mmol/L Potassium 3.8 (3.6-5.2) mmol/L Chloride 104 (100-108) mmol/L Carbon Dioxide 28 (21-32) mmol/L Anion Gap 7.8 (5.0-14.0) mmol/L BUN 65 H (7-18) mg/dL Creatinine 0.7 L (0.8-1.3) mg/dL Est Cr Clr Drug Dosing 94.13 mL/min Estimated GFR (MDRD) > 60 (>60) Glucose 133 H (74-106) mg/dL Calcium 8.3 L (8.5-10.1) mg/dL Total Bilirubin 0.2 (0.2-1.0) mg/dL AST 30 (15-37) U/L ALT 20 (12-78) U/L Alkaline Phosphatase 80 (46-116) U/L Total Protein 5.7 L (6.4-8.2) g/dL Albumin 3.0 L (3.4-5.0) g/dL Globulin 2.7 (2.3-3.5) g/dL Albumin/Globulin Ratio 1.1 L (1.2-2.2) SARS Virus RNA (PCR) Negative (NEGATIVE) Blood Type A POSITIVE Gel Antibody Screen Negative Crossmatch See Detail 06/12/20 06/13/20 06/13/20 Range/Units 17:56 05:02 05:02 WBC 7.9 (4.5-11.0) K/uL RBC 2.68 L (4.30-5.90) M/uL Hgb 9.9 L 8.4 L (12.0-15.0) g/dL Hct 27.8 L (40.0-54.0) % MCV 104 H (80-98) fL MCH 31 (27-31) pg MCHC 30 L (32-36) % Plt Count 201 (150-400) K/uL Sodium 144 (140-148) mmol/L Potassium 3.5 L (3.6-5.2) mmol/L Chloride 111 H (100-108) mmol/L Carbon Dioxide 29 (21-32) mmol/L Anion Gap 7.5 (5.0-14.0) mmol/L BUN 33 H (7-18) mg/dL Creatinine 0.6 L (0.8-1.3) mg/dL Est Cr Clr Drug Dosing TNP mL/min Estimated GFR (MDRD) > 60 (>60) Glucose 97 (74-106) mg/dL Calcium 7.8 L (8.5-10.1) mg/dL Total Bilirubin (0.2-1.0) mg/dL AST (15-37) U/L ALT (12-78) U/L Alkaline Phosphatase (46-116) U/L Total Protein (6.4-8.2) g/dL Albumin (3.4-5.0) g/dL Globulin (2.3-3.5) g/dL Albumin/Globulin Ratio (1.2-2.2) SARS Virus RNA (PCR) (NEGATIVE) Blood Type Gel Antibody Screen Crossmatch Med Orders - Current: Current Medications Acetaminophen (Tylenol) 650 mg PO Q4H PRN PRN Reason: Pain (Mild 1-3)/fever Last Admin: 06/13/20 06:59 Dose: 650 mg Documented by: Furosemide (Lasix) 40 mg PO DAILY [facility] Sodium Chloride (Normal Saline) 1,000 mls @ 100 mls/hr IV ASDIRECTED [facility] Last Admin: 06/12/20 23:51 Dose: 100 mls/hr Documented by: Pantoprazole Sodium 80 mg/ (Sodium Chloride) 100 mls @ 10 mls/hr IV .Q10H [facility] Last Admin: 06/13/20 08:44 Dose: 10 mls/hr Documented by: Levothyroxine Sodium (Synthroid) 150 mcg PO DAILY@0600 [facility] Last Admin: 06/13/20 06:58 Dose: 150 mcg Documented by: Lorazepam (Ativan) 0.5 mg IVPUSH Q4H PRN PRN Reason: Nausea/Vomiting Melatonin (Melatonin) 9 mg PO BEDTIME PRN PRN Reason: Sleep Ondansetron HCl (Zofran) 4 mg IV Q6H PRN PRN Reason: Nausea/Vomiting Last Admin: 06/12/20 14:24 Dose: 4 mg Documented by: Ondansetron HCl (Zofran Odt) 4 mg PO Q6H PRN PRN Reason: Nausea able to take PO Last Admin: 06/12/20 19:41 Dose: 4 mg Documented by: Senna/Docusate Sodium (Senna Plus) 1 tab PO BID PRN PRN Reason: Constipation Sodium Chloride (Saline Flush) 10 ml FLUSH ASDIRECTED PRN PRN Reason: Keep Vein Open Last Admin: 06/12/20 09:59 Dose: 10 ml Documented by: Discontinued Medications Fentanyl (Sublimaze) Confirm Administered Dose 100 mcg .ROUTE .STK-MED ONE Stop: 06/13/20 07:55 Sodium Chloride (Normal Saline) 1,000 mls @ 125 mls/hr IV ASDIRECTED [facility] Last Admin: 06/12/20 10:00 Dose: 125 mls/hr Documented by: Sodium Chloride (Normal Saline) 100 mls @ 3 mls/sec IV ASDIRECTED [facility] Last Admin: 06/12/20 11:35 Dose: 3 mls/sec Documented by: Metronidazole 500 mg/ Premix 100 mls @ 100 mls/hr IV ONETIME ONE Stop: 06/12/20 12:45 Last Admin: 06/12/20 11:51 Dose: Not Given Documented by: Iopamidol (Isovue-300 (61%)) 124 ml IV ONETIME ONE Stop: 06/12/20 10:20 Last Admin: 06/12/20 11:35 Dose: 124 ml Documented by: Pantoprazole Sodium (Protonix Iv) 40 mg IVPUSH ONETIME ONE Stop: 06/12/20 11:59 Last Admin: 06/12/20 12:03 Dose: 40 mg Documented by: Propofol (Diprivan 20 Ml) Confirm Administered Dose 200 mg .ROUTE .STK-MED ONE Stop: 06/13/20 07:55 Sodium Chloride (Saline Flush) 10 ml FLUSH ONETIME ONE Stop: 06/12/20 10:20 Last Admin: 06/12/20 11:35 Dose: 10 ml Documented by: - Exam Quality Assessment: No: Supplemental Oxygen General: Alert, Oriented, Cooperative, No Acute Distress Lungs: Clear to Auscultation, Normal Respiratory Effort Cardiovascular: Regular Rate, Regular Rhythm GI/Abdominal Exam: Soft, No Distention Extremities: No Pedal Edema Psy/Mental Status: Alert, Normal Affect Sepsis Event Note - Evaluation Sepsis Screening Result: No Definite Risk - Focused Exam Vital Signs: Vital Signs Temp Temp Pulse Resp BP Pulse Ox 06/13/20 10:10 35.6 C L 84 16 132/54 L 98 06/13/20 10:05 84 16 95/56 L 98 06/13/20 10:00 74 16 92/50 L 100 06/13/20 09:55 74 16 94/50 L 98 06/13/20 09:50 35.6 C L 74 16 93/50 L 94 L 06/13/20 08:00 80 14 83/59 L 97 06/13/20 07:29 35.3 C L 06/13/20 06:00 36.6 C 73 11 L 90/51 L 94 L 06/13/20 04:00 87 11 L 98/61 96 06/13/20 02:00 85 13 95/57 L 95 06/13/20 00:00 92 13 93/67 94 L - Problem List & Annotations (1) Acute gastrointestinal hemorrhage SNOMED Code(s): 67533000 Code(s): K92.2 - GASTROINTESTINAL HEMORRHAGE, UNSPECIFIED Status: Acute Current Visit: Yes (2) Anemia due to blood loss, acute SNOMED Code(s): 899932797 Code(s): D62 - ACUTE POSTHEMORRHAGIC ANEMIA Status: Acute Current Visit: Yes (3) Chronic atrial fibrillation SNOMED Code(s): 569104474 Code(s): I48.20 - CHRONIC ATRIAL FIBRILLATION, UNSPECIFIED Status: Chronic Current Visit: Yes (4) Hypothyroidism (acquired) SNOMED Code(s): 417094603 Code(s): E03.9 - HYPOTHYROIDISM, UNSPECIFIED Status: Chronic Current Visit: Yes - Problem List Review Problem List Initiated/Reviewed/Updated: Yes - My Orders Last 24 Hours: My Active Orders 06/12/20 09:46 RED BLOOD CELLS LP [BBK] Routine 06/12/20 12:48 Resuscitation Status Routine 06/12/20 13:31 Acetaminophen [TylenoL] 650 mg PO Q4H PRN Docusate Sodium/Sennosides [Senna Plus] 1 tab PO BID PRN LORazepam [Ativan] 0.5 mg IVPUSH Q4H PRN Melatonin 9 mg PO BEDTIME PRN Ondansetron [Zofran ODT] 4 mg PO Q6H PRN Ondansetron [Zofran] 4 mg IV Q6H PRN Sodium Chloride 0.9% [Normal Saline] 1,000 ml IV ASDIRECTED 06/12/20 13:31 Patient Status [ADT] Routine Antiembolic Devices [RC] .Routine Cardiac Monitoring [RC] CONTINUOUS Intake and Output [RC] QSHIFT Notify Provider Consults [RC] ASDIRECTED Notify Provider Vital Signs [RC] ASDIRECTED Oxygen Therapy [RC] PRN Up With Assistance [RC] ASDIRECTED VTE/DVT Education [RC] Per Unit Routine Vital Signs [RC] Q2HR Consult to Physician [CONS] Routine Sequential Compression Device [OM.PC] Routine VTE Pharmacological Contraindications [AST] Routine 06/12/20 14:00 Sodium Chloride 0.9% [Normal Saline] 100 ml Pantoprazole [ProTONIX IV] 80 mg IV 10 mls/hr 06/12/20 Dinner Nothing per Oral After Midnight Diet [DIET] 06/13/20 06:00 Levothyroxine [Synthroid] 150 mcg PO DAILY@0600 06/13/20 09:00 Furosemide [Lasix] 40 mg PO DAILY 06/13/20 10:20 Convert IV to Saline Lock [OM.PC] Routine 06/13/20 16:30 Pantoprazole [ProTONIX] 40 mg PO BIDAC 06/13/20 17:00 HEMOGLOBIN [HEME] Timed - Plan Plan:: ASSESSMENT AND PLAN - Acute upper gastrointestinal hemorrhage-hemoglobin has dropped further but no indication for transfusion as of yet. Melena seems to have stopped. Healing gastric ulcer noted on EGD today. -Twice daily proton pump inhibitor -Saline lock IV -Repeat hemoglobin this evening -Hold systemic anticoagulation -Clear liquids Anemia due to blood loss-hemoglobin has dropped by nearly 7 points from baseline but no indication for transfusion yet. -Type and cross 2 units of blood -Repeat hemoglobin this evening and in the morning Chronic but paroxysmal atrial fibrillation-he has had an ablation procedure. He is in sinus rhythm with a normal rate. -Hold anticoagulation -Hold beta-lay Acquired hypothyroidism-stable. Maintenance issues - - DVT prophylaxis -mechanical - GI prophylaxis -PPI - Nutrition -clear liquids Disposition -I would anticipate discharge home after the hospital stay Primary care physician -Dr. Jennifer Garcia M.D.
[2020-06-13] MEDS ORDERED: Potassium Chloride 20 MEQ Tab.ER PO ONE (10:25)
[2020-06-13] MEDS: Pantoprazole 40 MG Tab.CR PO SCH (15:37)
[2020-06-14] MEDS: Acetaminophen 325 MG Tab PO PRN (04:42)
[2020-06-14] MEDS: Levothyroxine 50 MCG Tab PO SCH (06:18)
[2020-06-14 08:26] VITALS: BP 93/63; PULSE 65
[2020-06-14] MEDS: Pantoprazole 40 MG Tab.CR PO SCH (08:28)
--- NOTE | 2020-06-14 10:13 | PCM.DCSUM1 ---
Discharge Summary - Hospital Course Brief History: 79-year-old male with history of paroxysmal atrial fibrillation status post ablation still on anticoagulation, acquired hypothyroidism who presented with melena and dizziness. He was admitted for management of presumed upper gastrointestinal hemorrhage with resulting anemia due to blood loss. Diagnosis: Stroke: No - Discharge Data Discharge Date: 06/14/20 Discharge Disposition: Home, Self-Care 01 Condition: Good - Referral to Home Health Primary Care Physician: Loi Devi MD - Discharge Diagnosis/Problem(s) (1) Acute gastrointestinal hemorrhage SNOMED Code(s): 87166044 ICD Code: K92.2 - GASTROINTESTINAL HEMORRHAGE, UNSPECIFIED Status: Acute (2) Anemia due to blood loss, acute SNOMED Code(s): 420020120 ICD Code: D62 - ACUTE POSTHEMORRHAGIC ANEMIA Status: Acute (3) Chronic atrial fibrillation SNOMED Code(s): 286839002 ICD Code: I48.20 - CHRONIC ATRIAL FIBRILLATION, UNSPECIFIED Status: Chronic (4) Hypothyroidism (acquired) SNOMED Code(s): 467648441 ICD Code: E03.9 - HYPOTHYROIDISM, UNSPECIFIED Status: Chronic - Patient Summary/Data Consults: Consultations 06/12/20 13:31 Consult to Physician [CONS] Routine Consulting Provider: Tai Sarah Courtesy Call Completed to Consulting Physician: Yes Reason for Consult: Gi bleed Person Notified: LOPEZ Date Notified: 06/12/20 Special Instructions: EGD in the morning Hospital Course: Al presented to the emergency room with melena and dizziness. Work-up in the emergency room was concerning for a gastrointestinal hemorrhage with the quantity of blood. He was not tachycardic but he was borderline hypotensive. His hemoglobin was 11 with a baseline of 15. 2 units of blood were typed and crossed. He was given IV fluids and 2 IV sites were maintained. He was admitted to the intensive care unit. His apixaban was discontinued. Serial hemoglobin levels did show a drop overnight but he did remain in a safe range and did not require transfusion. He was started on a continuous infusion of pantoprazole after receiving IV push pantoprazole in the emergency room. By the morning after admission he was feeling somewhat better and the melena had appeared to resolve. His hemoglobin had dropped all the way down to 8.2. Dr. Sarah performed upper endoscopy which revealed a prepyloric ulcer which had the appearance of recent bleeding but was not actively bleeding. This was thought to be the source of bleeding. The patient did admit that he had been using ibu profen intermittently. After the EGD he was started on clear liquids. His hemoglobin remained stable above 8. 3 checks in a row have been over 8. His blood pressure remains on the low side of normal and we have continued to hold his furosemide and metoprolol. He has tolerated full liquids. His vitals have been stable. His hemoglobin has been stable. There is been no further evidence for bleeding. We did make the transition to twice daily pantoprazole and oral form. He is feeling fairly well and would like to go home at this point. I believe he is safe for outpatient management. His CLOtest was negative. An H. pylori breath test was performed but this is pending at the time of discharge. New medications will include twice daily pantoprazole as well as an iron supplement. I encouraged him to hold metoprolol and furosemide until his follow-up but that he will likely need to go back on them once everything stabilizes. We did discontinue his apixaban since he has been in sinus rhythm for several months and had a recent life-threatening bleed. At this time he should be safe without the medication as long as he stays out of atrial fibrillation. - Patient Instructions Diet: Regular Diet as Tolerated Activity: As Tolerated Driving: Do Not Drive (Until your dizziness resolves ) Showering/Bathing: May Shower Notify Provider of: Increased Pain, Nausea and/or Vomiting Other/Special Instructions: 1. You were in the hospital for management of GI bleeding that resulted from a gastric ulcer. Your bleeding was severe enough that your hemoglobin dropped all the way down to around 8. Your condition has been improving after acid reducing therapy. I recommend that you take pantoprazole (Protonix) 40 mg twice daily for 1 month and then 40 mg daily for 2 months. You should also take an iron supplement twice daily with breakfast and supper to help build up your hemoglobin level following the bleeding. I recommend a soft, bland and boring diet for the next 1 to 2 weeks to allow the ulcer additional time to heal up. 2. Stop taking your apixaban (Eliquis). Your heart is currently in sinus rhythm and you had a life-threatening bleed so I recommend we stop the medication at this time. 3. At this time you should hold both metoprolol and furosemide. These medications will likely be resumed in the next 1 to 2 weeks as your blood pressure improves following the severe bleeding episode. The decision to restart or continue to hold these medications will be made when you follow-up with your primary care. 4. Follow up as scheduled with your primary care. You should have your hemoglobin level rechecked at the time of that visit. - Discharge Plan *PRESCRIPTION DRUG MONITORING PROGRAM REVIEWED*: Not Applicable *COPY OF PRESCRIPTION DRUG MONITORING REPORT IN PATIENT YANCY: Not Applicable Prescriptions/Med Rec: Ferrous Sulfate 325 mg PO BIDMEALS #60 tab Pantoprazole [ProTONIX] 40 mg PO BIDAC #60 tab.cr Home Medications: Home Meds Docusate Sodium [Colace] 2 tab PO BEDTIME 11/05/13 [History] Fluticasone Propionate [Flonase] 1 spray NASBOTH DAILY 11/05/13 [History] Furosemide [Lasix] 40 mg PO DAILY 11/05/13 [History] Levothyroxine 150 mcg PO DAILY 11/05/13 [History] Multivitamin with Minerals [Multiple Vitamin] 1 tab PO DAILY 11/05/13 [History] Success-3/DHA/Epa/Fish Oil [Success-3 Fish Oil 1,000 MG Sfgl] 2,000 mg PO DAILY 12/08/18 [History] Metoprolol Succinate 25 mg PO DAILY 06/12/20 [History] Ubidecarenone [Coq-10] 100 mg PO DAILY 06/12/20 [History] Ferrous Sulfate 325 mg PO BIDMEALS #60 tab 06/14/20 [Rx] Pantoprazole [ProTONIX] 40 mg PO BIDAC #60 tab.cr 06/14/20 [Rx] Oxygen Therapy Mode: Room Air Patient Handouts: Gastrointestinal Bleeding, Pantoprazole tablets Referrals: Loi Devi MD [Primary Care Provider] - 06/27/20 2:00 pm (Please note your appointment with is at the [facility]. Arrive 15 minutes early to register for your appointment.) - Discharge Summary/Plan Comment DC Time >30 min.: Yes (35-medication management, dietary discussion and follow- up) - Patient Data Vitals - Most Recent: Last Vital Signs Temp 35.5 C L 06/14/20 08:00 Pulse 65 08/29/20 08:00 Resp 18 06/14/20 08:00 BP 93/63 06/14/20 08:00 Pulse Ox 95 06/14/20 06:00 Weight - Most Recent: 83.007 kg I&O - Last 24 hours: Intake & Output 06/13/20 06/14/20 06/14/20 22:59 06:59 14:59 Intake Total 500 Output Total 330 300 250 Balance -330 -300 250 Lab Results - Last 24 hrs: Laboratory Results - last 24 hr 06/13/20 06/14/20 06/14/20 Range/Units 17:04 08:56 08:56 Hgb 8.2 L 8.4 L (12.0-15.0) g/dL Potassium 3.9 (3.6-5.2) mmol/L TIFFANY Results - Last 24 hrs: Microbiology 06/13/20 09:48 CLOtest - Final Stomach NEGATIVE CLOTEST REFERENCE RANGE: NEGATIVE Med Orders - Current: Current Medications Acetaminophen (Tylenol) 650 mg PO Q4H PRN PRN Reason: Pain (Mild 1-3)/fever Last Admin: 06/14/20 04:42 Dose: 650 mg Documented by: Furosemide (Lasix) 40 mg PO DAILY [facility] Last Admin: 06/13/20 10:49 Dose: Not Given Documented by: Levothyroxine Sodium (Synthroid) 150 mcg PO DAILY@0600 [facility] Last Admin: 06/14/20 06:18 Dose: 150 mcg Documented by: Lorazepam (Ativan) 0.5 mg IVPUSH Q4H PRN PRN Reason: Nausea/Vomiting Melatonin (Melatonin) 9 mg PO BEDTIME PRN PRN Reason: Sleep Last Admin: 06/13/20 21:21 Dose: 9 mg Documented by: Ondansetron HCl (Zofran) 4 mg IV Q6H PRN PRN Reason: Nausea/Vomiting Last Admin: 06/12/20 14:24 Dose: 4 mg Documented by: Ondansetron HCl (Zofran Odt) 4 mg PO Q6H PRN PRN Reason: Nausea able to take PO Last Admin: 06/12/20 19:41 Dose: 4 mg Documented by: Pantoprazole Sodium (Protonix) 40 mg PO BIDAC [facility] Last Admin: 06/14/20 08:28 Dose: 40 mg Documented by: Senna/Docusate Sodium (Senna Plus) 1 tab PO BID PRN PRN Reason: Constipation Sodium Chloride (Saline Flush) 10 ml FLUSH ASDIRECTED PRN PRN Reason: Keep Vein Open Last Admin: 06/12/20 09:59 Dose: 10 ml Documented by: Discontinued Medications Fentanyl (Sublimaze) Confirm Administered Dose 100 mcg .ROUTE .STK-MED ONE Stop: 06/13/20 07:55 Sodium Chloride (Normal Saline) 1,000 mls @ 125 mls/hr IV ASDIRECTED [facility] Last Admin: 06/12/20 10:00 Dose: 125 mls/hr Documented by: Sodium Chloride (Normal Saline) 100 mls @ 3 mls/sec IV ASDIRECTED [facility] Last Admin: 06/12/20 11:35 Dose: 3 mls/sec Documented by: Metronidazole 500 mg/ Premix 100 mls @ 100 mls/hr IV ONETIME ONE Stop: 06/12/20 12:45 Last Admin: 06/12/20 11:51 Dose: Not Given Documented by: Sodium Chloride (Normal Saline) 1,000 mls @ 100 mls/hr IV ASDIRECTED [facility] Last Admin: 06/12/20 23:51 Dose: 100 mls/hr Documented by: Pantoprazole Sodium 80 mg/ (Sodium Chloride) 100 mls @ 10 mls/hr IV .Q10H [facility] Last Admin: 06/13/20 15:25 Dose: Not Given Documented by: Iopamidol (Isovue-300 (61%)) 124 ml IV ONETIME ONE Stop: 06/12/20 10:20 Last Admin: 06/12/20 11:35 Dose: 124 ml Documented by: Pantoprazole Sodium (Protonix Iv) 40 mg IVPUSH ONETIME ONE Stop: 06/12/20 11:59 Last Admin: 06/12/20 12:03 Dose: 40 mg Documented by: Potassium Chloride (Klor-Con M20) 40 meq PO ONETIME ONE Stop: 06/13/20 10:26 Last Admin: 06/13/20 10:46 Dose: 40 meq Documented by: Propofol (Diprivan 20 Ml) Confirm Administered Dose 200 mg .ROUTE .STK-MED ONE Stop: 06/13/20 07:55 Sodium Chloride (Saline Flush) 10 ml FLUSH ONETIME ONE Stop: 06/12/20 10:20 Last Admin: 06/12/20 11:35 Dose: 10 ml Documented by: *Q Meaningful Use (DIS) - VTE *Q VTE Pharmacological Contraindications *Q: Active Hemorrhage
--- NOTE | 2020-06-15 14:45 | PN ---
DATE OF SERVICE: 06/14/2020 The patient has been clinically stable. No signs of further bleeding. Hemoglobin is less stable at 8.2 this morning. Thus far his CLOtest is negative, the final reading will be at 9:45 this morning. If that is negative, we will double check the H pylori status by means of H pylori breath test. He may be ready for discharge home later today. It sounds like they have decided to keep him off the anticoagulants at this point with his age of 79 and this incident of bleeding. Tai Sarah MD /[id number]
--- NOTE | 2020-06-24 08:36 | OR ---
DATE OF PROCEDURE: 06/13/2020 SURGEON: Tai Sarah MD PREOPERATIVE DIAGNOSIS: Probable upper gastrointestinal bleeding. POSTOPERATIVE DIAGNOSIS: Prepyloric gastric ulcer with (no active bleeding). OPERATIVE PROCEDURE: Esophagogastroduodenoscopy with antral biopsies for CLOtest. ANESTHESIA: IV sedation. INDICATIONS FOR PROCEDURE: This is a 79-year-old presenting with some upper GI bleeding. He presently has been on anticoagulation for atrial fibrillation, not on any antisecretory medications. The patient has been hemodynamically stable. He has a history of bleeding with some black stools followed by some red stools consistent with an upper GI bleeding source. The plan is to proceed with an upper GI endoscopy with biopsies as indicated. The potential risks, including bleeding and perforation, were discussed, and the patient wishes to proceed. DETAILS OF THE PROCEDURE: The patient was taken to the operating room and placed in a left lateral decubitus position. IV sedation was administered, after which the upper GI endoscope was passed orally through the esophagus into the stomach with retroflexion view of the fundus and thereafter through the pyloric channel and the junction of the 3rd and 4th portions of the duodenum. Findings included normal hypopharynx, larynx, upper esophageal sphincter, and esophageal body. There was no significant hiatal hernia or inflammation at the esophagogastric junction. Within the stomach, there was no blood or bleeding or vxckyg-byyfiu-yjgm material present. The patient did have a well-defined prepyloric gastric ulcer measuring about a centimeter. This was covered with some red clot, but no active bleeding was seen beyond that. The remainder of the stomach, pyloric channel, and visualized portions of the duodenum were unremarkable. At this point, biopsies were obtained from the area of gastritis surrounding the ulcer and sent for CLOtest for H pylori. Minimal bleeding from the biopsy site was seen, and the procedure was then concluded. POSTOPERATIVE PLAN: We will continue to treat the patient with proton pump inhibitors. Apparently, decision was made to not restart his Eliquis to avoid hemorrhagic complications, which would seem reasonable in someone who is 79 years old and having some bleeding problems at this point. If the patient's CLOtest is negative, we would likely obtain an H pylori breath test prior to discharge to double check the H pylori status, and finally, he should undergo a followup endoscopy in 4 to 6 weeks to confirm healing of the gastric ulcer. Tai Sarah MD /[id number] MTDD
== END 2020-06-14 11:06 | disposition home or self-care (01) | DRG 378 ==
LOC: JP.ED 09:06 → JP.ICU 12:46
PROVIDERS: ADMIT Internal Medicine; ATTEND Internal Medicine
PROC: 0DB68ZX Excision of Stomach, Via Natural or Artificial Opening Endoscopic, Diagnostic (ICD-10-PCS; principal; 2020-06-13)
DX: K92.2 Gastrointestinal hemorrhage, unspecified (principal); I48.91 Unspecified atrial fibrillation; K25.4 Chronic or unspecified gastric ulcer with hemorrhage; D62 Acute posthemorrhagic anemia; I48.20 Chronic atrial fibrillation, unspecified; E03.9 Hypothyroidism, unspecified; Z85.828 Personal history of other malignant neoplasm of skin; K59.09 Other constipation; Z88.1 Allergy status to other antibiotic agents; E78.00 Pure hypercholesterolemia, unspecified; K21.9 Gastro-esophageal reflux disease without esophagitis; M19.90 Unspecified osteoarthritis, unspecified site; Z96.649 Presence of unspecified artificial hip joint; Z96.659 Presence of unspecified artificial knee joint; Z20.828 Contact with and (suspected) exposure to other viral communicable diseases; Z87.891 Personal history of nicotine dependence; Z79.01 Long term (current) use of anticoagulants; Z88.0 Allergy status to penicillin; Z88.6 Allergy status to analgesic agent; Z88.8 Allergy status to other drugs, medicaments and biological substances; Z79.890 Hormone replacement therapy; Z79.899 Other long term (current) drug therapy
CPT/HCPCS: 36415; 71046 ×2; 74177 ×2; 80053; 85025; 85610; 85730; 86850; 86900; 86901; 86920; 86922; 96361; 96374; 99285; C9113; J7030; J7050; Q9967; 80048; 84132; 85018; 85027; 87081; 99222-AI; 99231; 99239; 99284; A9270-GY; J2405; J2704; J3010; U0002

== ENCOUNTER 2021-02-06 08:44 | Day surgery (SDC) | payer MEDICARE, BC ==
[~2021-02-06 08:44] MED LIST changes: +Bupivacaine 0.5% 50 ML MDV ONE; +Lidocaine 1% with EPINEPHrine 1:100,000 50 ML MDV ONE
[2021-02-06] MEDS ORDERED: Dextrose 5%-Lactated Ringers 1,000 ML IV SCH (09:00)
[2021-02-06] MEDS ORDERED: Acetaminophen 500 MG Tab PO ONE (09:00)
[2021-02-06] MEDS ORDERED: ceFAZolin 2 GM in Premix Bag 1 BAG IV ONE (10:00)
[2021-02-06] MEDS ORDERED: Bacitracin Oint 28.35 GM Tube ONE (11:30)
[2021-02-06 13:15] VITALS: BP 130/68; PULSE 62
--- NOTE | 2021-02-27 12:26 | OR ---
DATE OF PROCEDURE: 02/06/2021 SURGEON: Tai Sarah MD PREOPERATIVE DIAGNOSIS: Multiple atypical keratotic lesions, neck and scalp. POSTOPERATIVE DIAGNOSIS: Multiple atypical keratotic lesions, neck and scalp. OPERATIVE PROCEDURES: 1. Excision of atypical keratotic lesion behind right ear with layered closure (46808, 84486). 2. Excision of atypical keratotic lesion behind left ear with layered closure (86058, 65804). 3. Excision of atypical keratotic lesion in parietal scalp with layered closure (84309, 00299). 4. Excision of atypical keratotic lesion occipital scalp with layered closure (26158, 20352). ANESTHESIA: Local plus IV sedation. INDICATIONS FOR PROCEDURE: This is a 80-year-old male presenting with 4 atypical lesions, 1 behind the right ear, 1 behind the left ear, 1 on the parietal scalp, and 1 on the occipital scalp. Each of these are to be excised. Potential risks including bleeding, infection, possible need for re-excision if malignancy is identified with positive margins were all reviewed with the patient and his and they wished to proceed. DETAILS OF PROCEDURE: The patient was taken to the operating room, and after IV sedation administered, the above locations were prepped and draped, and in each case, the area was anesthetized with 1% lidocaine mixed with Marcaine. Elliptical incision was then made around each of the lesions. The lesion behind the right ear had a lesion plus margin length of 1.8 cm and an incision length 3.1 cm. Lesion behind the left ear had a lesion plus margin length of 1.2 cm and incision length of 2.2 cm. The lesion on the left parietal scalp had a lesion plus margin length of 3.0 cm with an incision length of 5.2 cm, and finally the lesion on the left occipital scalp had a lesion plus margin length of 0.8 cm and incision length of 1.1 cm. After excisions, these were sequentially then closed with 5-0 Vicryl stitch deep and then 5-0 Prolene stitch. Bacitracin was applied. The patient was taken to the recovery room in satisfactory condition. Tai Sarah MD /[id number]
== END 2021-02-06 13:16 | disposition home or self-care (01) ==
LOC: JP.SDS 08:44
PROVIDERS: ATTEND Surgery
DX: L82.0 Inflamed seborrheic keratosis (principal); L57.0 Actinic keratosis; E03.9 Hypothyroidism, unspecified; Z88.1 Allergy status to other antibiotic agents; Z88.8 Allergy status to other drugs, medicaments and biological substances
CPT/HCPCS: 88305; A9270-GY; J0690; J2250; J2704; J3010; J3490; J7121

== ENCOUNTER 2022-12-02 07:19 | Day surgery (SDC) | payer MEDICARE, BC ==
[2022-12-02] MEDS ORDERED: Dextrose 5%-Lactated Ringers 1,000 ML IV SCH (07:45)
[2022-12-02] MEDS ORDERED: fentaNYL 100 MCG/2 ML SDV ONE (08:08)
[2022-12-02] MEDS ORDERED: Propofol 200 MG/20 ML SDV ONE (08:08)
[2022-12-02 10:32] VITALS: BP 142/80; PULSE 58
== END 2022-12-02 10:50 | disposition home or self-care (01) ==
LOC: JP.SDS 07:19
PROVIDERS: ATTEND Surgery
DX: Z09 Encounter for follow-up examination after completed treatment for conditions other than malignant neoplasm (principal); I50.9 Heart failure, unspecified; I63.9 Cerebral infarction, unspecified; Z87.19 Personal history of other diseases of the digestive system; Z79.899 Other long term (current) drug therapy; Z88.8 Allergy status to other drugs, medicaments and biological substances; Z88.6 Allergy status to analgesic agent; Z88.0 Allergy status to penicillin
CPT/HCPCS: 43239; 88305; J2704; J3010; J7121

== ENCOUNTER 2025-08-20 06:21 | Day surgery (SDC) | payer MEDICARE, BC ==
[2025-08-20] MEDS: Lactated Ringers 1,000 ML IV SCH (07:15)
[2025-08-20] MEDS ORDERED: Propofol 200 MG/20 ML SDV ONE (07:19)
[2025-08-20] MEDS ORDERED: fentaNYL 50 MCG/ML SDV ONE (07:19)
[2025-08-20 09:05] VITALS: PULSE 67
[2025-08-20 09:28] VITALS: BP 124/84
== END 2025-08-20 09:30 | disposition home or self-care (01) ==
LOC: JP.SDS 06:21
PROVIDERS: ATTEND Surgery
DX: K29.70 Gastritis, unspecified, without bleeding (principal); K44.9 Diaphragmatic hernia without obstruction or gangrene; I10 Essential (primary) hypertension; E03.9 Hypothyroidism, unspecified; E78.00 Pure hypercholesterolemia, unspecified; Z88.8 Allergy status to other drugs, medicaments and biological substances; Z88.1 Allergy status to other antibiotic agents; Z79.82 Long term (current) use of aspirin; Z79.899 Other long term (current) drug therapy; Z79.890 Hormone replacement therapy
CPT/HCPCS: 00731; 43239; 87081; J2704; J3010; J7120